=== PATIENT | female | born 1935 | race Caucasian/White ===

== ENCOUNTER → 2016-07-22 | Outpatient (CLI) | payer MEDICARE ==
[~2016-07-22] MED LIST: ACULAR10 ML OD; AMITRIPTYLINE H25 MG PO; AMITRYPTYLINE PO; ANEXSIA 5/325 M1 TA1 PO; ATARAX PO; ATENOLOL PO; ATENOLOL25 MG PO; ATIVAN PO; BACTRIM DS TABL1 TA1; CARAFATE1 G; CEPHALEXIN500 M1 PO; CILOXAN5 ML OD; CIPRO250 M1 PO; DARVOCET-N 1001 TAB PO; DETROL LA PO; FLEXERIL10 M1 PO; GABAPENTIN300 M2 PO; GENTEAL10 ML TOP; HYDROCODONE/APA1 T16; HYDROXYZINE HCL25 M1 PO; IBUPROFEN PO; KEFLEX; LASIX PO; LEVOXYL PO; LEVOXYL125 MC1 PO; LISINOPRIL PO; LISINOPRIL10 MG PO; LORTAB 10/500 T1 TAB PO; LORTAB 7.51 TAB 7.5/ PO; MACROBID100 MG PO; MELOXICAM PO; MOBIC PO; MULTIVITAMIN WI1 CAP PO; PRAVACHOL PO; PRAVASTATIN SOD40 MG PO; STOOL SOFTENER; STOOL SOFTENER PO; STOOL SOFTENER100 M1 PO; SYNTHROID125 PO; SYSTANE GEL EYE10 ML OP; TENORMIN50 MG PO; ULTRAM PO; VIT B 12 PO
--- NOTE | ~2016-07-22 | MY11 ---
[facility] A Service of [facility] RADIOLOGY TEXT RESULTS PATIENT: RAKAN SNYDER LOCATION: [facility] : 33 UNIT #: [id number] AGE: [address]: Stephen Sanford MD SEX: F ORDER DR: [id number] [address] [address] [id number] O MR#: [id number] Acc #: [id number] NAME: RAKAN SNYDER : 1935 SEX: F STUDY DATE/TIME: 07/22/2016 11:57 UNIT: [facility] ROOM: STUDY DESCRIPTION: MY Mammogram Screening Dig Jerad Attending Physician: Stephen Sanford M.D. Referring Physician: Stephen Sanford M.D. Ordering Physician: Stephen Sanford M.D. Primary Care Physician: Stephen Sanford M.D. MEDICAL IMAGING REPORT This report is preliminary unless electronic signature is present. EXAM Digital screening mammogram, 07/22/2016 HISTORY 80-year-old woman, known bilateral nipple inversion. No risk elevation. Annual screening. COMPARISON Mammograms date to 07/10/2010 with most recent 07/21/2015. FINDINGS Digital imaging of each breast was completed utilizing screening protocol. Review includes FDA-approved CAD device. Breast parenchyma is partially fatty replaced. Parenchymal opacities persist in subareolar locations and upper outer quadrants of each breast. There are benign calcifications also noted bilaterally with a small grouping of benign calcifications projecting upper outer posterior third left breast. These may be within the skin. I see no suspicious mass and no architectural disturbance. Chronic bilateral nipple inversion is noted. IMPRESSION Stable benign mammogram. Annual screening recommended. Patients over the age of 40 are entered into a reminder system with target due date for the next mammogram. A result letter will also be sent to the patient. BIRADS: 2 Benign Finding Dictated by... Alex Craven M.D. THIS IS AN ELECTRONICALLY VERIFIED REPORT [facility] A Service of [facility] RADIOLOGY TEXT RESULTS PATIENT: RAKAN SNYDER LOCATION: [facility] : 33 UNIT #: [id number] AGE: [address]: Stephen Sanford MD SEX: F ORDER DR: Alex Craven M.D. at 07/22/2016 2:26 PM Julien TD: 07/22/2016 13:22 JOB #: [id number] MEDICAL IMAGING REPORT Page 1 of 1
== END | disposition home or self-care (01) ==
LOC: SMAM 11:04
DX: Z12.31 Encounter for screening mammogram for malignant neoplasm of breast (principal)
CPT/HCPCS: G0202

== ENCOUNTER → 2016-07-31 | Outpatient (CLI) | payer MEDICARE ==
[2016-07-31 13:55] LABS: HEMATOCRIT 36.2 % (35.0-45.0); HEMOGLOBIN 11.8 gm/dL (12.0-16.0); MEAN CELL VOLUME 73.1 FL (83-96); MEAN CORPUSCULAR HEMOGLOBIN 23.9 PG (28-34); MEAN CORPUSCULAR HGB CONC 32.7 g/dL (30-36); MEAN PLATELET VOLUME 8.7 FL (6.5-11.5); RED BLOOD COUNT 4.95 X10e (3.90-5.30); RED CELL DISTRIBUTION WIDTH 22.5 % (11.0-15.5); WHITE BLOOD COUNT 3.5 X10e3 (4.0-10.5)
[2016-07-31 14:32] LABS: ALBUMIN SERUM 3.7 g/dL (3.5-5.0); BILIRUBIN,TOTAL 0.8 mg/dL (0.2-2.0); CALCIUM SERUM 9.1 mg/dL (8.4-10.2); GLOM FILT RATE Estimated 52.4 mL/min (>60); POTASSIUM 4.3 mmol/L (3.5-5.1); PROTEIN TOTAL SERUM 6.8 g/dL (6.0-8.3)
== END | disposition home or self-care (01) ==
LOC: SLAB 13:39
PROVIDERS: Family Medicine
DX: E03.9 Hypothyroidism, unspecified (principal)
CPT/HCPCS: 36415; 80053; 82465; 84443; 85027

== ENCOUNTER → 2016-08-08 | Outpatient (CLI) | payer MEDICARE ==
--- NOTE | ~2016-08-08 | BD1 ---
[facility] A Service of [facility] RADIOLOGY TEXT RESULTS PATIENT: RAKAN SNYDER LOCATION: [facility] : 33 UNIT #: [id number] AGE: [address]: Stephen Sanford MD SEX: F ORDER DR: [id number] [place] [id number] O MR#: [id number] Acc #: [id number] NAME: RAKAN SNYDER : 1935 SEX: F STUDY DATE/TIME: 08/08/2016 13:16 UNIT: [facility] ROOM: STUDY DESCRIPTION: Dexa Bone Dens 1+ Site Attending Physician: Stephen Sanford M.D. Referring Physician: Stephen Sanford M.D. Ordering Physician: Stephen Sanford M.D. Primary Care Physician: Stephen Sanford M.D. MEDICAL IMAGING REPORT This report is preliminary unless electronic signature is present. EXAM Bone density spine/hip, 08/08/2016. HISTORY Screening. Prior left shoulder fracture. On thyroid medication. FINDINGS Bone mineral density scanning performed in upper four lumbar vertebral segments and both proximal femurs [age]-year-old 170-pound female. Prior studies performed on different equipment cannot be utilized for trending purposes. Bone mineral density L1-L4 1.188 g/cm2 for a T-score of 0.1 standard deviation below mean for a reference population normal young individuals and Z-score 1.5 standard deviations above the mean for age-matched population. PROXIMAL LEFT FEMUR: Total bone mineral density is 0.724 g/cm2 for a T-score 2.3 standard deviation below mean for a reference population normal young individuals and a Z-score 0.4 standard deviations below mean for age-matched population. Left femoral neck bone mineral density 0.803 g/cm2 for T-score 1.7 standard deviation below mean for a reference population of normal young individuals and a Z-score 0.3 standard deviations above the mean for age-matched population. Right proximal femur bone mineral density 0.725 g/cm2 for a T-score of 2.2 standard deviations below mean for a reference population of normal young individuals and a Z-score 0.4 standard deviations below mean for age-matched population. Right femoral neck bone mineral density 0.748 g/cm2 for a T-score 2.1 standard deviations below mean for a reference population normal young individuals and Z-score 0.1 standard deviations below the mean for an age-matched population. [facility] A Service of [facility] RADIOLOGY TEXT RESULTS PATIENT: RAKAN SNYDER LOCATION: [facility] : 33 UNIT #: [id number] AGE: [address]: Stephen Sanford MD SEX: F ORDER DR: IMPRESSION Osteopenia in the left femur. Patient felt to be at increased risk for fracture. Treatment options may be considered. Continued surveillance recommended. Incidental note made of osteopenia in the proximal right femur and bilateral femoral necks as well. Dictated by... Jason Lui M.D. THIS IS AN ELECTRONICALLY VERIFIED REPORT Jason Lui M.D. at 08/12/2016 8:13 AM Dima TD: 08/09/2016 09:09 JOB #: [id number] MEDICAL IMAGING REPORT Page 1 of 1
== END | disposition home or self-care (01) ==
LOC: SRAD 13:00
DX: Z13.820 Encounter for screening for osteoporosis (principal); M85.852 Other specified disorders of bone density and structure, left thigh; M12.9 Arthropathy, unspecified
CPT/HCPCS: 77080